=== PATIENT | male | born 1985 | race Caucasian/White ===

== ENCOUNTER 2025-02-10 18:17 | Emergency (ER) | payer MEDICAID ==
[~2025-02-10] VITALS: Ht 175.3 cm; Wt 76.0 kg
[2025-02-10 18:19] VITALS: O2SAT 100
[2025-02-10] MEDS ORDERED: IBUP-2028 MT (20:20)
[2025-02-10] MEDS ORDERED: LIDO-53 TP (20:20)
[2025-02-10] MEDS ORDERED: METH-653 MT (20:20)
[2025-02-10 20:28] VITALS: BP 107/71; PULSE 100; RESP 20; TEMP 36.8; O2SAT 95
[2025-02-10] MEDS: ACETAMINOPHEN 325MG TABLET PO ONE (20:33)
[2025-02-10] MEDS: KETOROLAC 30MG/ML VIAL IM ONE (20:33)
[2025-02-10] MEDS: METHOCARBAMOL 750MG TABLET PO SCH (20:34)
== END 2025-02-10 20:45 | disposition home or self-care (01) ==
LOC: ER 18:17
DX: S33.9XXA Sprain of unspecified parts of lumbar spine and pelvis, initial encounter (principal); Z79.899 Other long term (current) drug therapy; V89.2XXA Person injured in unspecified motor-vehicle accident, traffic, initial encounter; Y93.89 Activity, other specified; Y92.89 Other specified places as the place of occurrence of the external cause; Y99.8 Other external cause status
CPT/HCPCS: 99283; 96372; J1885